=== PATIENT | female | born 1995 | race Caucasian/White ===

== ENCOUNTER 2017-12-27 10:14 | Emergency (ER) | payer OTHER ==
[~2017-12-27] VITALS: Ht 161.3 cm; Wt 52.8 kg
[~2017-12-27 10:14] MED LIST: CETI10TA84 PO; HYOS0.3725 PO; MELA1CAP9 PO; OMEP40CA PO
[2017-12-27 10:20] VITALS: TEMP 36.6; Ht 161.3 cm; Wt 52.8 kg
[2017-12-27] MEDS ORDERED: KETOROLAC TROMETHAMINE 10 MG TAB PO STA (11:04)
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
[2017-12-27 12:14] VITALS: BP 113/76; PULSE 82; O2SAT 95
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
[2017-12-27] MEDS ORDERED: KETO10TA PO (12:50)
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
== END 2017-12-27 12:56 | disposition home or self-care (01) ==
LOC: C.EDB 10:18 → C.EDD 12:56
DX: S09.90XA Unspecified injury of head, initial encounter (principal); M54.2 Cervicalgia; M54.6 Pain in thoracic spine; R07.89 Other chest pain; V47.0XXA Car driver injured in collision with fixed or stationary object in nontraffic accident, initial encounter; Y92.411 Interstate highway as the place of occurrence of the external cause; J45.909 Unspecified asthma, uncomplicated; I38 Endocarditis, valve unspecified; I49.9 Cardiac arrhythmia, unspecified; Z90.49 Acquired absence of other specified parts of digestive tract

== ENCOUNTER 2022-02-05 08:25 | Inpatient (IN) ==
[2022-02-05] MEDS ORDERED: OXYTOCIN 30 UNITS/500 ML BAG IV PRN ×2 (09:22→18:40)
--- NOTE | 2022-02-05 09:28 | History & Physical Report ---
Date of Service February 05, 2022 Assessment & Plan (1) Premature rupture of membranes: Plan: Admit, routine labs, third trimester HIV/syphilis/hepatitis B Misoprostol 25 mcg sublingually every 4 hours for cervical softening, then Pitocin when patient has had adequate cervical ripening Epidural if patient requests Anticipate (2) Intermittent asthma: Plan: Inhaler as needed (3) 39 weeks gestation of : History of Present Illness Chief Complaint: [facility] Primary Care Provider: NO PCP Patient is a 26-year-old at 39 weeks and 6 days dated by 10-week ultrasound who presents to labor and delivery for leaking of fluid since 4 AM. Has been consistent leaking of fluid, also thinks she might of lost her mucous plug and did have some small amount of vaginal bleeding. Denies contractions but is having cramping. Notes good movement. Denies headache, blurry vision, right upper quadrant or epigastric pain. Otherwise feeling well. No other complaints has been complicated by COVID-19 in the second trimester, maternal intermittent asthma with inhaler use twice per week. Was also diagnosed with sinus tachycardia in 2016. Patient has had adequate care this . GBS negative Allergies Allergy/AdvReac Type Severity Reaction Status Date / Time peanut Allergy Intermediate Hives Verified 02/05/22 09:30 codeine AdvReac Intermediate "Heart Verified 02/05/22 09:30 Swells Up" Uncoded Nonscreenable Allergy Unknown unk Uncoded 01/06/15 13:38 Allergen Home Medications Medication Instructions Recorded Confirmed Type vit no.95-ferrous 1 tab PO DAILY 08/22/21 02/05/22 History fumarate 28 mg-folic acid 800 mcg tablet () acetaminophen 325 mg tablet 650 mg PO Q4H PRN #40 tab 01/10/22 Rx ferrous sulfate 325 mg (65 mg 325 mg PO DAILY 02/05/22 02/05/22 History iron) tablet (iron) Patient History Medical History Abnormal colonoscopy Asthma Biliary dyskinesia COVID-19 Tested positive 08/25/21 Currently Heart murmur Patient reports that murmur has not been heard in a few months IBS (irritable bowel syndrome) No chronic diseases present Sinus tachycardia Surgical History History of esophagogastroduodenoscopy (EGD) Status post cholecystectomy Family History Grandmother (Maternal) Myocardial infarction Mother Hypertension Grandfather (Paternal) Colon cancer Social History Smoking Status: Never smoker Hx Alcohol Use: No Hx Substance Use: No Preferred Language: Iraqi Communication Ability: Effective Visual Impairment: Partially Limited Hearing Ability: Normal Editor News Required: No Beliefs That Will Affect Care: None marital status: Single marital status details: Ty Walker Current Living Situation: Family Current Living Situation Comment: Lives with mother. 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+P Review of Systems All systems reviewed & are unremarkable except as noted in HPI & below Physical Exam Constitutional: WD/WN, vitals as above Respiratory: normal respiratory effort, lungs clear to auscultation Cardiovascular: RRR, no murmur, no edema Gastrointestinal (Abdomen): normal bowel sounds, soft, nontender, no hepatosplenomegaly Genitourinary: no vaginal lesions, no adnexal mass Sterile speculum exam: Noted clear fluid, Valsalva positive, ferning on microscopy exam, nitrazine was equivocal heart tracing: Baseline 135, moderate variability, no decelerations, positive accelerations, category 1 tracing Tocometer: Irritable Cervix: 2/50/-3 cephalic on exam Dusty 3500 g Results & Data ([facility]) Vital Signs (Past 12 Hours) Vital Signs Temp Pulse Resp BP 02/05/22 08:52 37.0 C 20 02/05/22 08:45 37.0 C 95 H 20 126/88
[2022-02-05] MEDS ORDERED: ALBUTEROL HFA 8 GM INHALER INH PRN (09:45)
[2022-02-05 09:58] LABS: Hematocrit (blood only) 38.4 % (37-47); Hemoglobin 12.3 g/dL (12.0-16.0); Mean Corpuscular Hemoglobin 26.4 pg (25-34); Mean Corpuscular Volume 82.4 fL (80-100); Mean Platelet Volume 10.6 fL (7.4-10.4); Platelet Count 171 K/uL (130-400); RDW Coefficient of Variation 17.2 % (11.5-14.5); RDW Standard Deviation 49.5 fL (36.4-46.3); Red Blood Count 4.66 M/uL (4.2-5.4); White Blood Count 9.94 K/uL (4.8-10.8)
[2022-02-05] MEDS: miSOPROStoL 25 MCG TAB SL SCH ×3 (10:39→23:38)
--- NOTE | 2022-02-05 14:19 | Labor Progress Brief Note ---
Date of Service February 05, 2022 Subjective Still leaking fluid, cramping and back pain Assessment & Plan (1) Premature rupture of membranes: Plan: Will give second dose of Misoprostol 25 mcg sublingually, then Pitocin when patient has had adequate cervical ripening Epidural if patient requests Anticipate (2) Intermittent asthma: Plan: Inhaler as needed (3) 39 weeks gestation of : Admission and Anticipated Discharge Date Admission Date: February 05, 2022 Physical Exam Physical Exam: FHT: Baseline 130, moderate variability, positive accelerations, no decelerations, category 1 tracing Tocometer: Irregular contractions Cervix: 2/60/-2 Results & Data ([place]) Vital Signs (Past 12 Hours) Vital Signs Temp Pulse Resp BP 02/05/22 10:38 36.8 C 83 20 123/79 02/05/22 08:52 37.0 C 20 02/05/22 08:45 37.0 C 95 H 20 126/88
[2022-02-05] MEDS ORDERED: ONDANSETRON 2 MG OD TAB PO PRN (17:04)
[2022-02-05] MEDS ORDERED: BUTORPHANOL TARTRATE 1 MG/ML VIAL IV PRN (17:05)
[2022-02-05] MEDS: LACTATED RINGER'S 1,000 ML IV PRN ×2 (17:25→20:35)
--- NOTE | 2022-02-05 19:29 | Labor Progress Brief Note ---
Date of Service February 05, 2022 Subjective Uncomfortable with contractions, wants epidural Assessment & Plan (1) Premature rupture of membranes: Plan: Start pit Epidural for pain control Anticipate (2) Intermittent asthma: Plan: Inhaler as needed (3) 39 weeks gestation of : Admission and Anticipated Discharge Date Admission Date: February 05, 2022 Physical Exam Physical Exam: heart tracing: Baseline 120, moderate variability, positive accelerations, variable deceleration, category 1 Tocometer: Contractions every 2 minutes Cervix: 3/80/-2, posterior soft, IUPC placed, no cord felt Results & Data ([facility]) Vital Signs (Past 12 Hours) Vital Signs Temp Pulse Resp BP 02/05/22 19:00 36.4 C L 18 02/05/22 18:58 36.4 C L 77 18 131/80 02/05/22 16:58 36.8 C 85 20 120/79 02/05/22 14:44 37.0 C 78 20 125/72 02/05/22 10:38 36.8 C 83 20 123/79 02/05/22 08:52 37.0 C 20 02/05/22 08:45 37.0 C 95 H 20 126/88
[2022-02-05] MEDS ORDERED: ePHEDrine sulfate 50 MG/ML AMP ONE (20:02)
[2022-02-05] MEDS ORDERED: fentaNYL citrate 100 MCG/2 ML VIAL ONE (20:03)
[2022-02-05] MEDS ORDERED: fentaNYL 2MCG/ML ROPIVACAINE 1.25MG/ML 100 ML BAG EPI ONE (20:03)
[2022-02-05] MEDS ORDERED: SODIUM CHLORIDE 0.9% INJ 10 ML VIAL ONE (20:03)
[2022-02-05] MEDS ORDERED: BUPIVACAINE 0.25% 30 ML VIAL ONE (20:03)
--- NOTE | 2022-02-05 20:30 | Anesthesiology Consultation ---
Date of Service February 05, 2022 Assessment & Plan (1) Encounter for pre-operative examination: Chart Review Chart Review: Patient NOT seen in Pre Admission Testing and Acceptable Risk for Labor Epidural Consults Requested none History Height/Weight Height: 5 ft 4 in Weight: 73.482 kg Allergies Allergy/AdvReac Type Severity Reaction Status Date / Time peanut Allergy Intermediate Hives Verified 02/05/22 09:30 codeine AdvReac Intermediate "Heart Verified 02/05/22 09:30 Swells Up" Uncoded Nonscreenable Allergy Unknown unk Uncoded 01/06/15 13:38 Allergen Medications Home Medications Medication Instructions Recorded Confirmed Last Taken vit no.95-ferrous 1 tab PO DAILY 08/22/21 02/05/22 02/04/22 fumarate 28 mg-folic acid 800 mcg tablet () acetaminophen 325 mg tablet 650 mg PO Q4H PRN #40 tab 01/10/22 Unknown ferrous sulfate 325 mg (65 mg 325 mg PO DAILY 02/05/22 02/05/22 02/03/22 iron) tablet (iron) Active Medications Generic Name Dose Route Start Last Admin Trade Name Freq PRN Reason Stop Dose Admin Butorphanol Tartrate 1 mg 02/05/22 17:05 02/05/22 17:25 Butorphanol Tartrate 1 Mg/Ml Vial IV 03/07/22 17:04 1 mg Q4H PRN Administration Pain Lactated Ringer's 1,000 mls @ 125 mls/hr 02/05/22 09:22 02/05/22 20:00 Lr IV 02/07/22 09:21 999 mls/hr .Q8H PRN Infusion L&D Protocol Protocol Oxytocin 30 units in 500 mls @ 2 mls/hr 02/05/22 18:40 02/05/22 19:32 Pitocin IV 02/07/22 18:39 0.12 units/hr .Q24H PRN 2 mls/hr Labor Induction/Augmentation Administration Protocol 0.12 UNITS/HR Misoprostol 25 mcg 02/05/22 09:45 02/05/22 17:14 Misoprostol 25 Mcg Tab SL 03/07/22 09:44 Not Given Q4H AYANNA Past Medical History Medical History Abnormal colonoscopy Asthma Biliary dyskinesia COVID-19 Tested positive 08/25/21 Currently Heart murmur Patient reports that murmur has not been heard in a few months IBS (irritable bowel syndrome) No chronic diseases present No leakage of amniotic fluid into vagina Sinus tachycardia Vaginal discharge during in third trimester Past Family History Family History Grandmother (Maternal) Myocardial infarction Mother Hypertension Grandfather (Paternal) Colon cancer Past Surgical History Surgical History History of esophagogastroduodenoscopy (EGD) Status post cholecystectomy Social History Smoking Status: Never smoker Hx Alcohol Use: No Hx Substance Use: No substance use type: does not use Physical Exam Vital Signs Last Vital Signs Temp 36.4 C L 02/05/22 19:00 Pulse 73 02/05/22 20:24 Resp 18 02/05/22 19:00 BP 131/80 02/05/22 18:58 Pulse Ox 100 02/05/22 20:24 Testing Laboratory Results 02/05/22 09:35 Blood Type A Positive 02/05/22 09:35 Antibody Screen NEGATIVE 02/05/22 09:35
[2022-02-05] MEDS ORDERED: diphenhydrAMINE 50 MG/ML VIAL IV PRN (21:04)
[2022-02-05] MEDS ORDERED: fentaNYL 2MCG/ML ROPIVACAINE 1.25MG/ML 100 ML BAG EPI PRN (21:04)
[2022-02-05] MEDS ORDERED: NALOXONE HCL 0.4 MG/1 ML VIAL/CARP IV PRN (21:04)
[2022-02-05] MEDS ORDERED: ePHEDrine sulfate 50 MG/ML AMP IV PRN (21:04)
[2022-02-05] MEDS ORDERED: ONDANSETRON INJ 2 MG/ML 2 ML VIAL IV PRN (21:04)
[2022-02-05] MEDS ORDERED: NALOXONE HCL 1 MG in SODIUM CHLORIDE 0.9% 1000ML 1,000 ML IV PRN (21:04)
[2022-02-05] MEDS ORDERED: NALBUPHINE HCL INJ 10 MG/ML AMP IV PRN (21:04)
[2022-02-06] MEDS ORDERED: NURSING L&D Epidural Breakthrough Pain Update ONE (00:12)
[2022-02-06] MEDS: LACTATED RINGER'S 1,000 ML IV PRN (02:12)
[2022-02-06] MEDS ORDERED: OXYTOCIN 30 UNITS/500 ML BAG IV PRN (03:18)
[2022-02-06] MEDS ORDERED: DIPHTHERIA/TETANUS/PERTUSSIS 0.5 ML SYR/VIAL IM ONE (03:18)
[2022-02-06] MEDS ORDERED: BENZOCAINE 20% AER SPR 82.5 GM CAN EXT PRN (03:18)
[2022-02-06] MEDS ORDERED: HYDROCORTISONE ACETATE 25 MG SUPP PR PRN (03:18)
[2022-02-06] MEDS: miSOPROStoL 25 MCG TAB SL SCH (03:20)
--- NOTE | 2022-02-06 03:20 | Delivery Summary ---
Vaginal Delivery Summary Date of Service February 06, 2022 Vaginal Delivery Summary Delivery Note History synopsis: Patient is 26 year old admitted at 39 6/7 weeks for premature rupture of membranes and found to be 2 cm dilated. She is given 1 dose of misoprostol 25 mcg sublingually, continue to contract throughout the day. She was rechecked and found to be 3 cm, and started on oxytocin for augmentation with a IUPC in place. It was never increased past 6 milliunits/h. Throughout the night she made good cervical change, and I was called when she was complete and ready for delivery Delivery Summary: Patient was placed in the dorsal lithotomy position. She was prepped and draped in the usual sterile fashion. Upon maternal pushing the head was delivered atraumatically followed by the anterior shoulders, posterior shoulders then the remainder of the infants body. The infants mouth and nose were bulb suction below the level of the perineum. A female infant was delivered at 0306, weight pending with APGARS of 8 at 1 minute and 10 at 5 minutes. The umbilical cord was clamped times two and cut. The was handed off to the awaiting nursing staff. Cord blood gases were not obtained. The placenta delivered intact with three vessel cord at 0309. Placenta was sent to pathology. Thirty units of Pitocin were added to the IV fluid and allowed to run freely. Uterine massage was performed until uterus was deemed firm. Upon inspection of the perineum, vagina and cervix were intact. First degree laceration was noted which was repaired with 3-0 vicryl in the usual fashion. There was also noted to be a small right labial laceration that was hemostatic and therefore not repaired. Upon re- inspection the patient was hemostatic. Uterus again massaged and found to be firm. Needle and sponge counts were correct. Patient was stable and allowed to recover in L&D room. Infant was stable and remained in room with mother in the Family Care Unit.
--- NOTE | 2022-02-06 06:59 | Anesthesia Procedure Note ---
Date of Service February 06, 2022 Anesthesia Post Epidural Note Vital Signs Vital Signs: Temp Pulse Resp BP Pulse Ox 36.9 C 86 18 114/64 99 02/06/22 05:15 02/06/22 05:16 02/06/22 05:15 02/06/22 05:16 02/06/22 03:09 Pain Intensity Bilateral Abdomen: Pain Intensity: 7 Notes Mental Status: alert / awake / arousable and participated in evaluation Nausea / Vomiting: adequately controlled Pain: adequately controlled Airway Patency, RR, SpO2: stable & adequate BP & HR: stable & adequate Hydration State: stable & adequate Neuraxial Anesthesia: was administered and sensory block is resolving Anesthetic Complications: no major complications apparent and Pt Satisfied with anesthetic care Epidural: Removed without complications and With tip intact Notes: Epidural site clean, dry and intact. No signs of edema, erythema or bruising at insertion site. Pt instructed to request anesthesia if she has residual lower extremity numbness or if she develops lower extremity pain or weakness, back pain or headache.
[2022-02-06] MEDS ORDERED: Nursing to Pharmacy Communication SCH (07:30)
[2022-02-06] MEDS: IBUPROFEN 600 MG TAB PO PRN ×3 (08:22→20:27)
[2022-02-06] MEDS: PRENATAL VITAMIN 1 TAB PO SCH (08:23)
[2022-02-06] MEDS: ACETAMINOPHEN 325 MG TAB PO PRN (10:24)
[2022-02-07] MEDS: ACETAMINOPHEN 325 MG TAB PO PRN (03:08)
[2022-02-07 06:14] LABS: Hematocrit (blood only) 34.2 % (37-47); Hemoglobin 10.8 g/dL (12.0-16.0); Mean Corpuscular Hemoglobin 26.6 pg (25-34); Mean Corpuscular Hgb Conc 31.6 g/dL (32-36); Mean Corpuscular Volume 84.2 fL (80-100); Platelet Count 160 K/uL (130-400); RDW Coefficient of Variation 17.5 % (11.5-14.5); RDW Standard Deviation 52.7 fL (36.4-46.3); Red Blood Count 4.06 M/uL (4.2-5.4); White Blood Count 12.49 K/uL (4.8-10.8)
[2022-02-07] MEDS: PRENATAL VITAMIN 1 TAB PO SCH (08:24)
--- NOTE | 2022-02-07 10:31 | Obstetrical Progress Note ---
Date of Service February 07, 2022 Subjective Ambulation: ambulating normally Voiding: no voiding problems Passing Gas:: Yes Diet Tolerance:: regular diet Lochia:: Small Feeding Type:: breast feeding Current Pain Level(1-10): 0 doing well. plans for d/c Physical Exam Constitutional WD/WN, vitals as above Gastrointestinal (Abdomen) abdomen soft and non tender Skin no rashes, warm and dry no edema. neg Colleen's Results & Data ([facility]) Vital Signs (Past 12 Hours) Vital Signs Temp Pulse Resp BP Pulse Ox 02/07/22 08:57 36.8 C 87 16 122/85 97 02/07/22 08:20 36.8 C 87 16 122/85 02/06/22 23:50 36.8 C 77 18 138/63
[2022-02-07 11:47] LABS: HBSAG NON-REACTIVE (NON-REACTIVE)
[2022-02-07] MEDS ORDERED: bisacodyL 5 MG TABEC PO SCH (20:00)
== END 2022-02-07 12:00 | disposition home or self-care (01) | DRG 807 ==
LOC: OPB 08:25 → 4S1 08:27 → 4E2 02-06 06:30